=== PATIENT | male | born 1950 | race Two or more races ===

== ENCOUNTER 2020-06-30 12:53 | Outpatient (CLI) | payer OTHER | END 2020-06-30 13:20 | disposition home or self-care (01) | LOC: OFIC 805 12:53 | PROVIDERS: ATTEND Otolaryngology | DX: H93.11 Tinnitus, right ear (principal); H61.23 Impacted cerumen, bilateral ==

== ENCOUNTER 2021-08-08 10:03 | Emergency (ER) | payer OTHER ==
[~2021-08-08] VITALS: Ht 165.1 cm; Wt 95.3 kg
[2021-08-08] MEDS ORDERED: IRBESARTAN-HCT1 EAC1 PO (10:13)
[2021-08-08] MEDS ORDERED: TAMS0.4C PO (10:14)
[2021-08-08] MEDS ORDERED: NORFLEX100MG PO (12:21)
[2021-08-08] MEDS ORDERED: KETO10TA2 PO (12:21)
== END 2021-08-08 12:49 | disposition home or self-care (01) ==
LOC: ER 10:03
DX: G89.11 Acute pain due to trauma (principal); M54.59 Other low back pain